=== PATIENT | female | born 1965 | race African-American/Black ===

== ENCOUNTER 2016-07-25 02:13 | Emergency (ER) | payer BC ==
[2010-10-30 08:15] VITALS: BMI 38.0
[2016-07-25 02:52] LABS: APPEARANCE CLEAR (CLEAR); COLOR YELLOW (YELLOW); SPECIFIC GRAVITY 1.025 (1.005-1.020)
[2016-07-25 02:53] LABS: NITRITE NEGATIVE (NEGATIVE)
[2016-07-25 03:00] LABS: BACTERIA FEW /hpf (NONE SEEN); BILIRUBIN NEGATIVE (NEGATIVE); GLUCOSE NEGATIVE (NEGATIVE); KETONE NEGATIVE (NEGATIVE); LEUKOCYTE ESTERASE TRACE (NEGATIVE); PROTEIN TRACE mg/dL (NEGATIVE); RED CELLS - URINE 0-5 /hpf (0-5); UROBILINOGEN NORMAL (NORMAL); WHITE CELLS - URINE 0-5 /hpf (0-5)
[2016-07-25 03:04] LABS: BASOPHILS 0.2 % (0.0-2.0); EOSINOPHILS 2.1 % (0-7); HEMATOCRIT 41.7 % (36.0-48.0); IMMATURE GRANULOCYTES 0.2 % (0-5); LYMPHOCYTES 23.3 % (15-50); MCH 30.9 pg (26.0-34.0); MCHC 33.6 g/dL (31.0-37.0); MCV 92.1 fL (80.0-100.0); MEAN PLATELET VOLUME 10.6 fL (7.4-10.4); MONOCYTES 12.3 % (2-11); NEUTROPHILS 61.9 % (40-80); PLATELET COUNT 273 10x3/uL (130-400); RBC 4.53 10x6/uL (4.00-5.40); RDW 12.4 % (11.5-14.5); WBC 6.6 10x3/uL (4.8-10.8)
[2016-07-25 03:18] LABS: ALBUMIN 3.9 g/dL (3.4-5.0); ALKALINE PHOSPHATASE 80 U/L (46-116); ALT (SGPT) 44 U/L (10-68); BILIRUBIN - TOTAL 0.16 mg/dL (0.2-1.3); CALC OSMOLALITY 279 mosm/kg (275-300); CALCIUM 8.9 mg/dL (8.5-10.1); CARBON DIOXIDE 24.2 mmol/L (21.0-32.0); CHLORIDE - SERUM 104 mmol/L (98-107); CREATININE - SERUM 0.8 mg/dL (0.6-1.3); GLUCOSE 120 mg/dL (74-106); POTASSIUM - SERUM 3.7 mmol/L (3.5-5.1); PROTEIN - SERUM 7.5 g/dL (6.4-8.2); SODIUM 139 mmol/L (136-145); UREA NITROGEN 15 mg/dL (7-18); eGFR NON AFRICAN AMERICAN 79 mL/min (90-120)
== END 2016-07-25 04:10 | disposition home or self-care (01) ==
LOC: D.ER 02:13
PROVIDERS: Emergency Medicine
DX: S30.0XXA Contusion of lower back and pelvis, initial encounter (principal); S80.12XA Contusion of left lower leg, initial encounter; V43.52XA Car driver injured in collision with other type car in traffic accident, initial encounter; Y93.89 Activity, other specified; Y92.410 Unspecified street and highway as the place of occurrence of the external cause; S46.912A Strain of unspecified muscle, fascia and tendon at shoulder and upper arm level, left arm, initial encounter

== ENCOUNTER → 2018-01-07 12:56 | Outpatient (CLI) | payer OTHER ==
[2010-10-30 08:15] VITALS: BMI 38.0
== END | disposition home or self-care (01) ==
LOC: D.RAD 12:56
DX: Z02.71 Encounter for disability determination (principal)

== ENCOUNTER → 2019-07-07 10:00 | Outpatient (CLI) | payer MEDICARE ==
[2010-10-30 08:15] VITALS: BMI 38.0
== END | disposition home or self-care (01) ==
LOC: D.MAMMO 09:30
PROVIDERS: ATTEND Nurse Practitioner
DX: Z12.31 Encounter for screening mammogram for malignant neoplasm of breast (principal)

== ENCOUNTER 2020-10-08 15:30 | Outpatient (CLI) | payer MEDICARE ==
[2010-10-30 08:15] VITALS: BMI 38.0
== END 2020-10-08 23:59 | disposition home or self-care (01) ==
LOC: D.MAMMO 15:30
PROVIDERS: ATTEND Nurse Practitioner
DX: N64.4 Mastodynia (principal); N63.10 Unspecified lump in the right breast, unspecified quadrant